=== PATIENT | male | born 1945 | race Caucasian/White ===

== ENCOUNTER 2018-10-09 09:13 | Inpatient (IN) ==
[2018-09-30 14:19] LABS: BASO# 0.02 X1000 (0.0-0.2); BASO% 0.2 % (0.0-0.8); EOS# 0.13 X1000 (0.0-0.7); EOS% 1.2 % (0.0-10.0); HEMATOCRIT 27.1 % (42.0-52.0); HEMOGLOBIN 8.5 g/dL (14.0-18.0); IMM GRAN# 0.04 X1000 (0.0-0.04); IMM GRAN% 0.4 % (0.0-0.5); LYMPH# 1.02 X1000 (1.2-3.4); LYMPH% 9.3 % (20.5-51.1); MCH 26.6 PG (27-31); MCHC 31.4 g/dL (33-37); MCV 84.7 FL (81-99); MONO# 0.91 X1000 (0.11-0.59); MONO% 8.3 % (1.7-9.3); MPV 10.1 FL (7.4-10.4); NEUT% 80.6 % (42.2-75.2); PLT 484 X1000 (130-400); RDW 13.6 % (11.5-14.5); WBC 10.92 X1000 (4.8-10.8)
[2018-09-30 14:50] LABS: ALBUMIN 3.5 g/dL (3.5-5.0); CALCIUM 9.6 mg/dL (8.8-10.2); CREATININE 2.5 mg/dL (0.7-1.2); PHOSPHORUS 4.2 mg/dL (2.7-4.5); POTASSIUM 5.1 mmol/L (3.5-5.1)
[2018-09-30 15:05] LABS: TSH 1.9 uIUmL (0.27-4.20); VITAMIN D 25 HYDROXY 31.5 NG/DL
[2018-09-30 15:50] LABS: PREALBUMIN 9.6 mg/dL (20-40)
[2018-10-09] MEDS ORDERED: DIPRIVAN 1% ONE (10:10)
[2018-10-09] MEDS ORDERED: XYLOCAINE-MPF 2% ONE (10:11)
[2018-10-09] MEDS ORDERED: PEPCID ONE (10:13)
[2018-10-09] MEDS ORDERED: REGLAN ONE (10:13)
[2018-10-09] MEDS ORDERED: KEFZOL 2 GM/D5W 2 GM/50 ML IVPB ONE (10:14)
[2018-10-09] MEDS ORDERED: LR 1,000 ML ONE (10:14)
[2018-10-09] MEDS ORDERED: SUFENTA ONE (10:14)
[2018-10-09] MEDS ORDERED: VANCOMYCIN ONE (14:15)
[2018-10-09] MEDS ORDERED: TOBRAMYCIN POWDER MISC ONE (14:15)
[2018-10-09] MEDS ORDERED: MORPHINE IV PRN (15:32)
[2018-10-09] MEDS ORDERED: ZOFRAN IV PRN (15:32)
[2018-10-09] MEDS: DILAUDID ONE ×2 (16:12→16:17)
[2018-10-09] MEDS ORDERED: PERCOCET-5 ONE (16:25)
[2018-10-09] MEDS ORDERED: ROCALTROL PO SCH (18:15)
[2018-10-09] MEDS: OXY IR PO PRN (18:25)
[2018-10-09] MEDS ORDERED: DILAUDID IV PRN (18:54)
[2018-10-09] MEDS ORDERED: DILAUDID ONE (19:01)
--- NOTE | 2018-10-09 19:01 | OPERATIVE NOTE ---
PROCEDURE DATE: 10/09/2018 PREOPERATIVE DIAGNOSES: 1. 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 2. Left hardware related pain, lateral ankle. POSTOPERATIVE DIAGNOSES: 1. 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 2. Left hardware related pain, lateral ankle. 3. Left ankle infection. PROCEDURES: 1. Left hardware removal, distal fibula. 2. Left ankle arthrotomy with irrigation and debridement and placement of antibiotic spacer. 3. Left partial excision of tibia. 4. Left partial excision of talus. SURGEON: Moise Ludwig MD. INTERNAL AFFAIRS INVESTIGATOR: TWAN Verdugo, who was an integral part of the case, helping with all aspects of the case, helping to increase our operating room efficiency greatly. ANESTHESIA: General with LMA. ESTIMATED BLOOD LOSS: 25 mL. IMPLANTS: Bone cement with tobramycin and vancomycin mixed in. DISPOSITION: To PACU, hemodynamically stable. INDICATION FOR PROCEDURE: Mr. Wilkes is a 73-year-old male who had an ankle fracture a month ago. We ended up fixing his ankle fracture. Unfortunately, his ankle has deteriorated over time. It looked more like a Charcot type process. His preoperative labs show a white count of about 10, so we discussed with him about doing a tibiotalocalcaneal fusion. He expressed understanding and wished to proceed. DESCRIPTION OF PROCEDURE: Mr. Wilkes was identified in the preoperative holding area. The left ankle was marked as the correct surgical site. He was then wheeled to the operating room and placed supine on the operating table. All bony prominences were well padded. He was induced under general anesthesia. LMA was placed. Tourniquet was placed on the left thigh and the left lower extremity was then prepped with chlorhexidine gluconate scrub and then ChloraPrep, and draped in a normal sterile fashion. Surgical pause was performed. We identified the correct patient, correct side, and the correct procedure. Preoperative antibiotics were given. I started with an incision over the lateral aspect of the distal fibula. Dissection was carried down. We were planning on just taking off those 4 syndesmotic screws, but when we got in there and started taking out a few of the screws, it looked like some of the tissue looked purulent, so we took cultures there and ended up opening up that whole area on the lateral side and took out the entire plate and screws. That removed all of our hardware that was in the ankle. I then made an anterior incision over the ankle and dissection was carried down to the capsule. I made an ankle arthrotomy and ended up taking cultures there. I did not see any gross purulence, but there was a lot of just slough tissue everywhere, and there was a lot of bone that was there, both in the distal aspect of the tibia and on the dorsal aspect of the talus. I ended up using a curette and a rongeur, and I partially excised the dome of the talus and got back to healthier appearing bone. The bone looked good overall on the talus, but we did saucerize the whole area and hopefully got rid of all the infection that was there, if there was, in fact, infection there. I did the same thing for the tibia. I used a curette and rongeur and curetted a lot of the bone out, and got back to good healthy-appearing bone. I took some bone samples from the tibia and sent it for culture, also. I also scraped the distal fibula and curetted out the screw holes. After we had an extremely thorough debridement and had partially excised the tibia and partially excised the talus, and debrided all the loose tissue, I then irrigated everything copiously with normal saline. I did not see any purulent looking tissue. I did not see any pockets of purulence, and actually it appeared to be good and healthy appearing tissue when we were done. I then used bone cement with vancomycin and tobramycin mixed in, and we put that in the ankle joint. We held the foot more in a neutral position and let it harden up there. After that, we used 0 Maxon to close the deep layers, 2-0 Maxon for the subcutaneous tissue, and nylon on the skin. Adaptic, 4x4s, ABD, Sof-Rol, and posterior splint were applied. The tourniquet was let down. He had good capillary refill return to the toes. He was then awoken from general anesthesia, moved to his own bed, and taken to PACU in stable condition. Postoperatively, he will be nonweightbearing on the left lower extremity. He will be admitted to the hospital. We will wait for his cultures to come back. I will keep him on Anc until his cultures come back. cc: Moise Ludwig MD
[2018-10-09] MEDS ORDERED: INSULIN PEN NEEDLES ONE (23:15)
[2018-10-09] MEDS: KEFZOL 1 GM/D5W 1 GM/50 ML IVPB IV SCH (23:24)
[2018-10-09] MEDS: DITROPAN XL PO SCH (23:25)
[2018-10-09] MEDS: LIPITOR PO SCH (23:25)
[2018-10-09] MEDS: XANAX PO SCH (23:25)
[2018-10-09] MEDS: PROZAC PO SCH (23:25)
[2018-10-09] MEDS: PEPCID PO SCH (23:25)
[2018-10-09] MEDS: PERIDEX MT SCH (23:26)
[2018-10-09] MEDS: BASAGLAR SUBQ SCH (23:38)
[2018-10-09] MEDS: CARDURA PO SCH (23:39)
[2018-10-10] MEDS: LOVENOX SUBQ SCH (06:33)
[2018-10-10 06:51] LABS: CALCIUM 8.6 mg/dL (8.8-10.2); CREATININE 2.4 mg/dL (0.7-1.2); POTASSIUM 5.8 mmol/L (3.5-5.1)
--- NOTE | 2018-10-10 07:28 | PROGRESS NOTE ---
DATE: 10/10/2018 SUBJECTIVE: Mr. Wilkes lying in the bed this morning. Overall feeling okay. He did well overnight. OBJECTIVE: Left lower extremity exam: The splint is clean, dry, and intact. He is able to move the toes dorsiflexion and plantar flexion really well he has good capillary refill to all the toes. ASSESSMENT: Status post left ankle hardware removal and irrigation, debridement and partial excision tibia and talus. PLAN: I discussed with Mr. Wilkes about what all went on yesterday. We were not able to do the TTC fusion because it did look like there was some purulence there and there is some question whether there was an infection so took a lot of the cultures, cleaned out all the bone that was in his tibia and his talus. I discussed with him our plan which is to follow the cultures until they either are no growth for several days or they grow back a bacteria. It they do grow back a bacteria then we will consult Infectious Disease and tailor our antibiotics appropriately. If it ultimately does not grow anything out and everything looks to be sterile, then we will plan on probably going back in and perform a TTC fusion sometime this next week. So I discussed with him he will be here over the weekend. He will remain on IV Ancef for now. We will continue to monitor that left lower extremity. He is now nonweightbearing left lower extremity. cc: Moise Ludwig MD
[2018-10-10] MEDS ORDERED: COZAAR PO SCH (09:00)
[2018-10-10] MEDS ORDERED: FERROUS SULFATE PO SCH (09:00)
[2018-10-10] MEDS: ASPIRIN EC PO SCH (09:07)
[2018-10-10] MEDS: APRESOLINE PO SCH ×3 (09:07→20:15)
[2018-10-10] MEDS: OXY IR PO PRN ×4 (09:07→19:58)
[2018-10-10] MEDS: KEFZOL 1 GM/D5W 1 GM/50 ML IVPB IV SCH (09:07)
[2018-10-10] MEDS: XANAX PO SCH ×3 (09:07→20:25)
[2018-10-10] MEDS: CATAPRES PO SCH ×3 (09:08→20:15)
[2018-10-10] MEDS: PEPCID PO SCH ×3 (09:08→20:25)
[2018-10-10] MEDS: PROSCAR PO SCH (09:08)
[2018-10-10] MEDS: HUMALOG SUBQ SCH ×3 (09:09→19:05)
[2018-10-10] MEDS: PERIDEX MT SCH ×2 (09:09→20:15)
[2018-10-10] MEDS ORDERED: NS 500 ML ONE (15:50)
[2018-10-10] MEDS: MAXIPIME 1 GM in NS 50 ML IV SCH (15:53)
--- NOTE | 2018-10-10 16:26 | CONSULTATION ---
DATE OF CONSULTATION: 10/10/2018 FINAL DIAGNOSES: 1. Apparent osteomyelitis of the left ankle in the setting of a Charcot joint. 2. Longstanding type 2 diabetes mellitus treated with insulin with multiple microvascular complications including retinopathy, neuropathy, and nephropathy. 3. Anemia due to chronic kidney disease. 4. Essential hypertension. 5. Osteoporosis. RECOMMENDATIONS: 1. His preoperative and intraoperative cultures are both growing gram-negative rods yet to be identified. I have taken the liberty of consulting Dr. Allan Cheney, Infectious Disease, as he will likely need long-term antibiotics for approximately 6 weeks. 2. His anemia is probably due to chronic renal disease but I will recheck the reticulocyte count, CBC, and iron studies tomorrow. He probably needs erythropoietin and I have ordered this to be given subcutaneously Saturday, Saturday, and Saturday although there is a long- acting form he could probably get prior to discharge. His baseline hemoglobin seems to be about 9.5, so the 8.5 on admission is only slightly lower than previous values. PRESENT ILLNESS: Mr. Wilkes is a 73-year-old who I have followed for several years with longstanding type 2 diabetes mellitus. He was admitted yesterday for revision of his ankle hardware and ankle fusion. However, Dr. Ludwig found extensive necrotic and infected bone, and a fusion was not attempted. The hardware was removed and he had as much abnormal bone removed as practical. Today, he is lying in bed with his left foot elevated and is fairly comfortable. I believe his neuropathy reduces his sensation of pain. He denies any recent fevers, chills, cough, or change in his chronic urinary symptoms. He has previously had minimally symptomatic urinary tract infections. His diabetes was diagnosed over 25 years ago and he has been on insulin for greater than 20 years. He has had numerous previous eye laser treatments, documented peripheral neuropathy. His baseline creatinine is approximately 2.5. His lab coordinator is Dr. Luisa Garrett. He also has occasional symptomatic hypoglycemia as well as asymptomatic hypoglycemia. HOME MEDICATIONS: His home medications are as documented in the chart. PAST SURGICAL HISTORY: He has had an ablation for reentrant tachycardia. He has had multiple laser photocoagulations of the retinas. SOCIAL HISTORY: He has never been . 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 He does not use any alcohol or tobacco, although he smoked 1- 1/2 packs per day for 27 years. REVIEW OF SYMPTOMS: Constitutional: No fever, chills, or recent weight loss. HEENT exam: Vision is adequate despite his previous retinal issues. Cardiovascular: No recent angina or other chest pain, no diaphoresis, dizziness, edema. He does not exert himself much but denies shortness of breath. No history of ischemic heart disease, valvular heart disease, or congestive heart failure. Respiratory: No cough, congestion, orthopnea, or wheezing. GI: Appetite is good. He denies any diarrhea or constipation, has occasional heartburn. No melena or bright red blood per rectum. : He has moderate urinary frequency and occasional incontinence. Neurologic: No history of strokes or seizures. Psychological: No history of thought disorders or memory loss. He has had some depressed symptoms previously and has been on long-term Prozac. Endocrine: No history of thyroid disease. Hematologic: Chronic anemia but no abnormal bleeding. PHYSICAL EXAMINATION: General appearance: Elderly obese white male who is alert and talkative. HEENT: Pupils equal, round and reactive to light. Extraocular motions intact. Oropharynx is benign with fair dentition. Neck: Supple with no adenopathy, JVD, or bruits. Cardiovascular: Regular rate and rhythm, normal S1 and S2, no murmurs or gallops. Lungs: Clear to auscultation. Abdomen: Soft, obese, nondistended, nontender, without organomegaly. Bowel sounds are normal. Musculoskeletal: His arms and right leg are unremarkable. His left lower leg is encased in a posterior splint with Kevin wrap. His toes are pink and warm. Dermatologic: Normal skin turgor, no jaundice, no rashes noted. Neurologic: Cranial nerves are unremarkable. Mental status: He is alert and cooperative and memory seems intact. Gait is not tested. LABORATORY: The most recent iron studies I could find were in October of 2017 and were normal with a total iron of 90, TIBC of 280, and saturation of 32%. B12 and folate levels were normal in October, as well. He had multiple parathyroid hormone levels and the two most recent ones including yesterday were normal. DEXAscan of his hips and spine in May of 2018 showed normal findings in the lumbar spine and left femoral neck, but the right femoral neck was slightly low with a T-score of -1.3. Vitamin D levels were normal. I appreciate this opportunity to follow Mr. Wilkes. cc: MD Moise Fleming MD MTDD
--- NOTE | 2018-10-10 17:38 | INFECTIOUS DISEASE CONSULT REP ---
DATE: 10/10/2018 CONCLUSION: The patient has a gram-negative timmy bacterial osteomyelitis of the left ankle. The patient is status post hardware removal and partial excision of the tibia and talus and placement of a spacer in the ankle. RECOMMENDATIONS: I have discontinued Ancef and instead placed the patient on cefepime pending culture results. The dose of cefepime has been modified because of the patient's renal failure. DISCUSSION: The patient has a Charcot ankle and injured it severely. He had to have metal placed in the ankle. The ankle became erythematous and swollen, as well as draining. He was taken back to surgery by Dr. Ludwig who did a partial excision of the tibia and talus infected bones. Dr. Ludwig also put in a spacer. Laboratory studies show a CBC with a white count of 10,920, hemoglobin 8.5, and platelet count 484,000. Cultures from the ankle are growing a gram-negative timmy. The patient's creatinine is 2.4. GFR is 27. PAST MEDICAL HISTORY/REVIEW OF SYSTEMS: Eyes and Ears: Patient can see and hear okay. Neck: No pain with movement. Respiratory: No cough or shortness of breath. Cardiac: No chest pain or palpitations. Gastrointestinal: Patient is having decreased frequency of passing his stool. He is not having nausea or vomiting. Genitourinary: No dysuria or flank pain. Cardiac: No chest pain or palpitations. Neurologic: The patient does not have seizures. He does have decreased sensation in both of his feet due to neuropathy. Bones/Joints/Muscles: The patient has bilateral Charcot arthropathy of the ankle. The patient has decreased sensation in it and has had fractures in it and subsequent surgeries to repair them. PREVIOUS HOSPITALIZATIONS AND OPERATIONS: The patient has had surgeries on his left ankle, which was fractured, including placement of metal. The patient has also had a tonsillectomy. MEDICAL DISEASES: Positive for morbid obesity, diabetes mellitus, and hypertension. Neuropathy involving both of the patient's ankles and feet. Hyperlipidemia, gastroesophageal reflux disease. INFECTIOUS DISEASE HISTORY: Positive for pneumonia, urinary tract infection, and now ankle osteomyelitis. FAMILY HISTORY: Positive for diabetes mellitus, hypertension, stroke and cancer. SOCIAL HISTORY: [place] He is single. He is allergic to penicillin and morphine, but he has tolerated Ancef well. The patient does not smoke. He does drink alcoholic beverages. He does not use illicit drugs. ADDENDUM: All ankle cultures grew enterobacter. Cefepime stopped and Levaquin started. PHYSICAL EXAMINATION: Vital Signs: Temperature is 98.4 degrees, pulse 75, respirations 18, blood pressure is 169/58. The patient is 5 feet 11 inches tall, weighs 302 pounds. General: This is a morbidly obese, elderly male. He is in no acute distress at this time. Head/Eyes/Ears/Nose/Throat: He can hear my spoken words and see near objects. He does not have any white coating on his tongue. Neck: No pain with movement of his neck. Lungs: Clear to auscultation. Cardiovascular: Heart rate is regular. Abdomen: Soft, nontender. Extremities: The patient's left leg distal to the knee has a large dressing and is in a large splint. Neurologic: The patient is awake. He can move his extremities. There is no tremor. His memory as regarding his medical history seemed to be intact. Integumentary: No rash was noted. HOME MEDICATIONS: Include the following: Xanax, atorvastatin, Rocaltrol, Catapres, Cardura, Pepcid, Prozac, Apresoline, insulin, Cozaar, and Ditropan. Thank you for the consultation. cc: MD Moise Robles MD [facility]
[2018-10-10] MEDS: LIPITOR PO SCH ×2 (19:57→20:25)
[2018-10-10] MEDS: DITROPAN XL PO SCH ×2 (19:58→20:26)
[2018-10-10] MEDS: PROZAC PO SCH ×2 (19:58→20:25)
[2018-10-10] MEDS: BASAGLAR SUBQ SCH ×2 (19:58→20:25)
[2018-10-10] MEDS: CARDURA PO SCH ×2 (19:58→20:26)
[2018-10-11] MEDS: MAXIPIME 1 GM in NS 50 ML IV SCH ×2 (02:27→16:27)
[2018-10-11] MEDS: LOVENOX SUBQ SCH (05:14)
[2018-10-11 06:18] LABS: BASO# 0.03 X1000 (0.0-0.2); BASO% 0.4 % (0.0-0.8); EOS# 0.54 X1000 (0.0-0.7); HEMATOCRIT 23.6 % (42.0-52.0); HEMOGLOBIN 7.1 g/dL (14.0-18.0); IMM GRAN# 0.04 X1000 (0.0-0.04); IMM GRAN% 0.5 % (0.0-0.5); LYMPH# 1.57 X1000 (1.2-3.4); LYMPH% 20.4 % (20.5-51.1); MCH 26.1 PG (27-31); MCHC 30.1 g/dL (33-37); MCV 86.8 FL (81-99); MONO# 1.11 X1000 (0.11-0.59); MONO% 14.4 % (1.7-9.3); MPV 9.9 FL (7.4-10.4); NEUT# 4.42 X1000 (1.4-6.5); NEUT% 57.3 % (42.2-75.2); PLT 462 X1000 (130-400); RBC 2.72 XMIL (4.7-6.1); RDW 13.7 % (11.5-14.5); RETIC% 1.22 % (0.8-2.1); RETIC-HE 26.6 PG (28.2-36.6); WBC 7.71 X1000 (4.8-10.8)
[2018-10-11 06:33] LABS: HEMOGLOBIN A1C 6.7 % (4.8-6.0)
[2018-10-11 06:36] LABS: IRON SATURATION 10 %; TIBC 181 ug/dL; TOTAL IRON 19 ug/dL (53-167); UNBOUND IRON 162 ug/dL (112-346)
[2018-10-11 06:53] LABS: CALCIUM 8.2 mg/dL (8.8-10.2); CREATININE 2.7 mg/dL (0.7-1.2); POTASSIUM 4.6 mmol/L (3.5-5.1)
[2018-10-11] MEDS: VITAMIN C PO SCH (08:37)
[2018-10-11] MEDS: PEPCID PO SCH ×2 (08:38→20:24)
[2018-10-11] MEDS: FERGON PO SCH (08:38)
[2018-10-11] MEDS: CATAPRES PO SCH ×3 (08:38→18:26)
[2018-10-11] MEDS: XANAX PO SCH ×2 (08:38→20:29)
[2018-10-11] MEDS: PROSCAR PO SCH (08:38)
[2018-10-11] MEDS: APRESOLINE PO SCH ×3 (08:39→18:26)
[2018-10-11] MEDS: ASPIRIN EC PO SCH (08:39)
[2018-10-11] MEDS: PERIDEX MT SCH ×2 (08:39→20:23)
[2018-10-11] MEDS: HUMALOG SUBQ SCH ×3 (10:34→18:24)
--- NOTE | 2018-10-11 10:48 | PROGRESS NOTE ---
DATE: 10/11/2018 OBJECTIVE: Vital Signs: Temperature is 98.6 degrees, pulse 66, respirations 18, blood pressure 141/46. Eyes: Pupils are equal and round. Lungs: Clear in all lung cason. Cardiovascular exam: Regular rhythm and rate without murmur or S3. Extremities: He says he is pretty comfortable, as long as he does not move his left leg or foot. ASSESSMENT AND PLAN: 1. Gram-negative timmy bacterial osteomyelitis of left ankle. Patient is status post hardware removal, partial excision of the tibia and talus, and replacement of a spacer in the ankle, although Dr. Cheney has discontinued the Ancef and placed him on cefepime pending culture results. 2. Longstanding diabetes mellitus type 2. We will follow pattern sugars. His multiple microvascular complications include retinopathy, neuropathy and nephropathy. 3. Anemia due to chronic kidney disease. 4. Essential hypertension. 5. Osteoporosis. Currently hematocrit 23, hemoglobin 7.1. He may benefit from a blood transfusion; may give him a unit of blood. Sodium 138, potassium 4.6, chloride 104, bicarbonate 25. BUN 29, creatinine 2.7. I think his lowest creatinine was 2.3. He had a creatinine of 2.4 on 10/10/2018. cc: MD Moise Butcher MD Russell T. Barr, MD
[2018-10-11] MEDS: OXY IR PO PRN (14:30)
--- NOTE | 2018-10-11 16:28 | ORTHOPAEDICS PROGRESS NOTE ---
DATE: 10/11/2018 Mr. Wilkes is seen status post debridement and irrigation of his ankle. Presently, his dressing is clean and dry. Vital signs are stable. Blood counts: Hematocrit 23. He is awake and alert at the present time. He is receiving IV antibiotics. We will plan on probably keeping him through the weekend and looking at discharge Saturday. cc: MD Moise Castillo MD
[2018-10-11] MEDS: LIPITOR PO SCH (20:23)
[2018-10-11] MEDS: DITROPAN XL PO SCH (20:23)
[2018-10-11] MEDS: CARDURA PO SCH (20:23)
[2018-10-11] MEDS: BASAGLAR SUBQ SCH (20:23)
[2018-10-11] MEDS: PROZAC PO SCH (20:24)
[2018-10-12] MEDS: OXY IR PO PRN ×2 (02:54→22:24)
[2018-10-12] MEDS: MAXIPIME 1 GM in NS 50 ML IV SCH (02:54)
[2018-10-12] MEDS: LOVENOX SUBQ SCH (05:01)
--- NOTE | 2018-10-12 07:11 | PROGRESS NOTE ---
DATE: 10/12/2018 SUBJECTIVE: Mr. Wilkes is resting comfortably. Feels much better. Breathing comfortably. OBJECTIVE: Vital Signs: Temperature 97.4 degrees, pulse 57, respirations 17, blood pressure 148/79. HEENT: Pupils are equal round. Lungs: Clear in all lung cason. Cardiovascular: Regular rhythm and rate without murmur or S3. LABORATORY STUDIES: Urine output 2500. ASSESSMENT AND PLAN: 1. Status post debridement and irrigation of his ankle. His dressing is clean and dry. Dr. Ludwig is following. Continue IV antibiotics and hoping maybe can discharge tomorrow. 2. Gram-negative timmy bacterial osteomyelitis of left ankle, status post hardware removal, partial excision of the tibia and talus. 3. Diabetes mellitus type 2. Sugars under pretty good control. 4. Chronic kidney disease. 5. Essential hypertension. 6. Osteoporosis. I do not see any change in the orders. cc: MD Moise Butcher MD
--- NOTE | 2018-10-12 09:24 | INFECTIOUS DISEASE PROGRESS NO ---
DATE: 10/12/2018 All of the patient's cultures from his ankle grew out Enterobacter. I have discontinued cefepime and placed the patient on p.o. Levaquin. cc: MD Moise Robles MD MTDD
[2018-10-12] MEDS: ASPIRIN EC PO SCH (09:29)
[2018-10-12] MEDS: APRESOLINE PO SCH ×3 (09:29→17:09)
[2018-10-12] MEDS: CATAPRES PO SCH ×3 (09:29→17:09)
[2018-10-12] MEDS: PROSCAR PO SCH (09:29)
[2018-10-12] MEDS: VITAMIN C PO SCH (09:29)
[2018-10-12] MEDS: FERGON PO SCH (09:29)
[2018-10-12] MEDS: PEPCID PO SCH ×2 (09:29→22:16)
[2018-10-12] MEDS: XANAX PO SCH ×2 (09:29→22:16)
[2018-10-12] MEDS: LEVAQUIN PO SCH (09:29)
[2018-10-12] MEDS: PERIDEX MT SCH ×2 (09:29→22:16)
--- NOTE | 2018-10-12 11:20 | ORTHOPAEDICS PROGRESS NOTE ---
DATE: 10/12/2018 Mr. Wilkes was seen status post incision and drainage of his ankle. Currently, his bandage is clean and dry. He is relatively afebrile with stable vital signs. His cultures are fortunately growing an organism consistent with Enterobacter. Dr. Cheney has modified the antibiotics specifically for this. We will plan considering discharge home on outpatient followup and outpatient antibiotics. Dr. Ludwig will see him tomorrow to consider whether or not to proceed with discharge home or dressing change. He is stable currently. cc: MD Moise Castillo MD
[2018-10-12] MEDS: HUMALOG SUBQ SCH ×3 (12:27→22:24)
[2018-10-12] MEDS: PROZAC PO SCH (22:16)
[2018-10-12] MEDS: DITROPAN XL PO SCH (22:17)
[2018-10-12] MEDS: LIPITOR PO SCH (22:17)
[2018-10-12] MEDS: CARDURA PO SCH (22:17)
[2018-10-12] MEDS: BASAGLAR SUBQ SCH (22:25)
[2018-10-13] MEDS: LOVENOX SUBQ SCH ×2 (04:38→05:52)
--- NOTE | 2018-10-13 07:28 | PROGRESS NOTE ---
DATE: 10/13/2018 SUBJECTIVE: Mr. Wilkes is lying in bed this morning. Overall, his pain is controlled. OBJECTIVE: Right lower extremity exam. Splint is clean, dry, and intact. He has good dorsiflexion and plantar flexion of the toes. Good capillary refill to the toes. ASSESSMENT: Status post right partial excision tibia and talus. Irrigation and debridement of the ankle and hardware removal. PLAN: Mr. Wilkes will go on Levaquin for p.o. antibiotics outpatient to cover his infection. These are recommended by Dr. Cheney and his team. We will get everything set up for discharge today, and I will see him in a week in the clinic. He will be nonweightbearing right lower extremity. cc: Moise Ludwig MD
[2018-10-13] MEDS ORDERED: EPOGEN SUBQ SCH (09:00)
--- NOTE | 2018-10-13 09:37 | DISCHARGE SUMMARY ---
DATE OF CONSULTATION: 10/13/2018 ADMITTING DIAGNOSES: 1. Left ankle Charcot. 2. Left hardware related pain. 3. Diabetes mellitus type 2. 4. Peripheral neuropathy. DISCHARGE DIAGNOSES: 1. Left ankle Charcot. 2. Left hardware pain. 3. Left ankle infection. 4. Diabetes mellitus. 5. Peripheral neuropathy. PROCEDURES: 1. On 10/09/2018, Dr. Ludwig performed a left hardware removal, distal fibula. 2. Left ankle arthrotomy with irrigation, debridement, and placement of antibiotic spacer. 3. Partial excision, left tibia. 4. Partial excision, left talus. HOSPITAL COURSE: Mr. Wilkes is a 73-year-old male who had an ankle fracture quite some time ago. Dr. Ludwig ended up fixing that ankle. Unfortunately, the ankle has deteriorated over time. He began displaying signs and symptoms of a Charcot process. He presented to Dr. Ludwig's office with increased pain and swelling. Preoperatively, we did lab work which included a white count of 10. We discussed doing a tibiotalocalcaneal fusion. We discussed risks and benefits. Mr. Wilkes wished to proceed. He was taken into the operating room and satisfactory anesthesia was obtained. Once the procedure was started, however, on incision, pus was noted to the distal fibula. It was decided at that time to hold off on any permanent fixation. We did irrigation and debridement at that time, and placed an antibiotic spacer. He was then taken to the recovery room. After satisfactory recovery, he was transferred to [address] [place] [address]. He has had an uneventful postoperative course. Dr. Ludwig did discuss with him that we were unable to do the tibiotalocalcaneal fusion related to the risk of infection. Cultures were taken in the OR that did grow out Enterobacter aerogenes. Dr. Cheney was consulted for IV antibiotic management. It was found to be resistant to Keflex so Dr. Cheney changed him to oral Levaquin. The patient has been taking that daily. Current laboratory data, his white count is 7.71, hemoglobin and hematocrit 7.1 and 23.6, platelet count is 462,000. BUN and creatinine are 39 and 2.7. His baseline creatinine is around 2.5. His hemoglobin and hematocrit are a little bit down. However, he is asymptomatic. His pulse is 57. His blood pressure is 175/44. He is 98% on room air. He denies being dizzy or lightheaded at all so at this point, we believe he is ready for discharge home. DISCHARGE MEDICATIONS: 1. His home medications will be resumed. 2. We are going to continue him on 40 mg subcutaneous of Lovenox. 3. Levaquin 250 mg p.o. daily x6 weeks. 4. Percocet 5 mg p.o. every 6 hours as needed for pain. DISCHARGE DISPOSITION: Mr. Wilkes is being discharged home with home health. We are going to get him a walker as well as a wheelchair. He is going to be nonweightbearing to this left side. He is in a postoperative splint. He knows to call the office with any questions or concerns. We are going to continue him on the p.o. Levaquin for 6 weeks. We will recheck his BMP just to monitor his creatinine while he is on the Lovenox and Levaquin. We will continue him on the Lovenox while he is nonweightbearing. We will do Percocet for pain control. We will see him back in the office in 1 week to take down the splint and look at his incision. He will likely go into a cast. He is going to be nonweightbearing for at least 2 months. We will likely do the oral antibiotics for 6 weeks. Recheck labs and everything, and if his infection has cleared, we will work on getting permanent fixation at probably the 2 month jade if everything goes well. Dictated by TWAN Verdugo for Moise Ludwig MD cc: TWAN Verdugo MD
[2018-10-13] MEDS: FERGON PO SCH (09:43)
[2018-10-13] MEDS: LEVAQUIN PO SCH (09:43)
[2018-10-13] MEDS: ASPIRIN EC PO SCH (09:43)
[2018-10-13] MEDS: CATAPRES PO SCH (09:43)
[2018-10-13] MEDS: PROSCAR PO SCH (09:44)
[2018-10-13] MEDS: PEPCID PO SCH (09:44)
[2018-10-13] MEDS: APRESOLINE PO SCH (09:44)
[2018-10-13] MEDS: VITAMIN C PO SCH (09:44)
[2018-10-13] MEDS: XANAX PO SCH (09:56)
[2018-10-13] MEDS: HUMALOG SUBQ SCH (09:57)
[2018-10-13 11:57] VITALS: BP 150/35
== END 2018-10-13 16:03 | disposition home health service (06) | DRG 493 ==
LOC: PAT 09:13 → 4N 09:13 → OPS 09:13 → OBSVTOIN 14:41
PROVIDERS: ADMIT Orthopaedic Surgery; ATTEND Orthopaedic Surgery
CPT/HCPCS: 76000; 80048; 82040; 82306; 82948; 83036; 83540; 83550; 83970; 84075; 84100; 84134; 84443; 85025; 85045; 87070; 87075; 87077; 87186; 87205; 94760; 94761; 94799; 97110; 97162; 97530; A9270; J0690; J0692; J0885; J1170; J1650; J1815; J3260; J3370; J7040; J7120; S0138; XXXXX